=== PATIENT | male | born 1970 | race Caucasian/White ===

== ENCOUNTER 2016-11-18 09:11 | Emergency (ER) | payer OTHER ==
[~2016-11-18] VITALS: Ht 195.6 cm; Wt 136.2 kg
[2016-11-18] MEDS ORDERED: LISI-167 PO (09:44)
[2016-11-18] MEDS ORDERED: CHOL500014 PO (09:44)
[2016-11-18] MEDS ORDERED: OMEG1CAP12 PO (09:44)
[2016-11-18] MEDS ORDERED: ASPI-496 PO (09:44)
[2016-11-18] MEDS ORDERED: BEET SUPPLEMENT PO (09:44)
[2016-11-18] MEDS ORDERED: MULT1TAB57 PO (09:44)
[2016-11-18] MEDS ORDERED: SODIUM CHLORIDE 0.9% 1,000ML IVBOLUS ONE ×2 (10:00→11:00)
[2016-11-18] MEDS ORDERED: SODIUM CHLORIDE FLUSH 10ML SYR IVF ONE (10:00)
[2016-11-18 10:23] LABS: ASPARTATE AMINO TRANSFERASE 34 U/L (15-37); BLOOD UREA NITROGEN 15 mg/dL (7-18)
[2016-11-18] MEDS ORDERED: INSULIN REGULAR 100 UNITS/ML, 3ML VIAL ONE (10:40)
[2016-11-18] MEDS ORDERED: INSULIN REGULAR 100 UNITS/ML, 3ML VIAL SQ-INSULIN SCH (11:00)
[2016-11-18 13:29] VITALS: BP 119/79
== END 2016-11-18 13:33 | disposition home or self-care (01) ==
LOC: ED 09:57
DX: E11.65 Type 2 diabetes mellitus with hyperglycemia (principal); I10 Essential (primary) hypertension
CPT/HCPCS: 36415; 71010; 80053; 81003; 82010; 82800; 82962; 83690; 85025; 96360; 96361; 96372; 99285; J7030